=== PATIENT | male | born 1960 | race Caucasian/White ===

== ENCOUNTER 2024-09-18 00:41 | Emergency (ER) | payer SELFPAY ==
[~2024-09-18] VITALS: Ht 170.2 cm; Wt 80.0 kg
[2024-09-18 01:35] LABS: BASOPHILS % 0.6 % (0.0-2.0); EOSINOPHILS % 1.8 % (0.0-5.0); HEMATOCRIT. 47.1 % (42.0-52.0); HEMOGLOBIN. 15.3 g/dL (14.0-18.0); LYMPHOCYTES % 58.5 % (20.0-50.0); MEAN CORPUSCULAR HEMOGLOBIN 27.7 pg (28.0-32.0); MEAN CORPUSCULAR HGB CONC 32.4 g/dL (31.0-37.0); MEAN CORPUSCULAR VOLUME 85.6 fL (80.0-94.0); MEAN PLATELET VOLUME 8.6 fl (7.4-10.4); MONOCYTES % 5.1 % (2.0-8.0); PLATELET 279 x1000/uL (130-400); RED CELL DISTRIBUTION WIDTH 15.2 % (11.6-14.6); WHITE BLOOD COUNT 9.2 x1000/uL (4.5-11.0)
[2024-09-18 01:40] LABS: CARBON DIOXIDE 19 mEq/L (21-32); CHLORIDE 100 mEq/L (98-107); SODIUM 137 mEq/L (136-145)
[2024-09-18 01:41] LABS: CALCIUM 8.9 mg/dL (8.7-10.4)
[2024-09-18 01:43] LABS: INR 0.9; PROTHROMBIN TIME 10.3 sec (9.6-11.0)
[2024-09-18 01:45] LABS: CREATININE 1.3 mg/dL (0.6-1.3)
[2024-09-18 01:46] LABS: GLUCOSE 344 mg/dL (70-105); UREA NITROGEN BLOOD 26 mg/dL (9-23)
[2024-09-18 01:47] LABS: ALANINE AMINOTRANSFERASE 53 IU/L (10-49); ALBUMIN 4.2 g/dL (3.2-4.8); ASPARTATE AMINOTRANSFERASE 55 IU/L (<34)
[2024-09-18 01:48] LABS: BILIRUBIN TOTAL 0.5 mg/dL (0.1-1.0)
[2024-09-18] MEDS ORDERED: NOREPINEPHRINE 8MG/250ML PMX 250 ML IV ONE ×2 (02:10→02:15)
[2024-09-18 02:23] LABS: BILIRUBIN DIRECT < 0.1 mg/dL (<=3.0)
[2024-09-18 02:28] LABS: POTASSIUM 2.7 mEq/L (3.5-5.1)
[2024-09-18 02:29] LABS: TROPONIN I HIGH SENSITIVITY 3723 ng/L (3.0-53)
[2024-09-18 02:33] VITALS: PULSE 112; RESP 16; O2SAT 90
[2024-09-18] MEDS ORDERED: HEPARIN 5000 UNITS/ML VIAL IV ONE (02:45)
[2024-09-18] MEDS ORDERED: TENECTEPLASE 50MG/VIAL (FOR MI OR PE) IV ONE (03:00)
[2024-09-18] MEDS ORDERED: IOHEXOL-350 100 ML BOTTLE ONE (03:22)
== END 2024-09-18 06:57 ==
LOC: ER 01:12 → EDBD 01:12 → ER 06:57
DX: I46.9 Cardiac arrest, cause unspecified (principal); I21.3 ST elevation (STEMI) myocardial infarction of unspecified site
CPT/HCPCS: 80076; 80048; 82962; 83880; 83690; 85025; 85610; 84484; 36415; 74174; 71045; 71275; 94664; 93005; 94003; 94070; 98960; 31500; 92950; 99291; 99292; Q9967; J1644; J3490; J3101; Z7610 ×8; A4606